=== PATIENT | female | born 2000 | race Caucasian/White ===

== ENCOUNTER → 2020-05-19 | Outpatient (CLI) | payer BC ==
--- NOTE | 2020-05-19 16:58 | US ---
EXAMINATION TYPE: US pelvis complete transvag DATE OF EXAM: 05/19/2020 COMPARISON: NONE CLINICAL HISTORY: 19-year-old female N92.6 Irregular menstruation, unspecified. Pt states irregular m enses, recently having 2 in the month of APRIL TECHNIQUE: Transabdominal sonographic images of the pelvis were acquired. Transvaginal sonographic i mages were medically necessary to better assess the following anatomy: Ovaries Date of LMP: 05/17/20 FINDINGS: EXAM MEASUREMENTS: Uterus: 7.2 x 3.3 x 4.0 cm Endometrial Stripe: 0.3 cm Right Ovary: 3.5 x 1.9 x 1.9 cm Left Ovary: 2.9 x 1.5 x 2.1 cm 1. Uterus: Anteverted and myometrium wnl 2. Endometrium: wnl 3. Right Ovary: wnl 4. Left Ovary: wnl 5. Bilateral Adnexa: wnl 6. Posterior cul-de-sac: Trace fluid IMPRESSION: Unremarkable sonographic examination of the pelvis.
== END ==
LOC: RADUSWWP 14:56
PROVIDERS: ATTEND Family Medicine
DX: N92.6 Irregular menstruation, unspecified (principal)
CPT/HCPCS: 76830; 76856

== ENCOUNTER → 2020-06-13 | Outpatient (CLI) | payer BC ==
--- NOTE | 2020-06-13 13:25 | MR ---
EXAMINATION TYPE: MR brain wo con DATE OF EXAM: 06/13/2020 COMPARISON: MRI brain April 20, 2014. CT brain January 18, 2014. HISTORY: Chronic migraine headaches. TECHNIQUE: Multiplanar, multisequence imaging of the brain and brainstem is performed without IV cont rast. FINDINGS: Diffusion weighted images demonstrate no evidence of a recent infarct or other diffusion abnormality. There is no extraaxial fluid collection or significant white matter signal abnormality. The ventricu lar system and cisternal spaces are normal in size and appearance. The brain volume is age appropria te. Midline structures demonstrate normal morphology. The craniocervical junction remains within normal limits. Normal vascular flow voids are present. The visualized sinuses are clear and the globes are i ntact. IMPRESSION: Fairly unremarkable study. No significant change from prior studies.
== END | disposition home or self-care (01) ==
LOC: RADMRIMAIN 12:12
PROVIDERS: ATTEND Family Medicine
DX: R51 Headache (principal); G89.29 Other chronic pain
CPT/HCPCS: 70551

== ENCOUNTER 2020-08-12 17:59 | Emergency (ER) | payer BC ==
[2020-08-12 18:25] VITALS: BP 113/82; PULSE 68; RESP 16; TEMP 98.5
--- NOTE | 2020-08-12 19:47 | ED ---
Nausea/Vomiting/Diarrhea HPI - General Chief complaint: Nausea/Vomiting/Diarrhea Stated complaint: test Time Seen by Provider: 08/12/20 18:30 Source: patient Mode of arrival: ambulatory Limitations: no limitations - History of Present Illness Initial comments: Patient is a 20-year-old female presenting to the emergency department requesting a test. Patient states she took an at home test 2 days ago and it was negative however she believes she is having all his symptoms like a blood test. She states she has been nauseous, breast tenderness and states she has been spotting. She states she does take control pills but states she stopped a few weeks ago. She has not been before. She does admit to some light spotting but states this is typical of her. She denies any fever, chills, abdominal pain, vomiting, diarrhea. She denies any vaginal discharge, she denies concerns for STDs. She has no further complaints at this time. - Related Data Home Medications Medication Instructions Recorded Confirmed medroxyPROGESTERone [Depo-Provera] 150 mg IM Q90D 07/31/14 04/18/16 Loratadine [Claritin] 10 mg PO DAILY PRN 10/17/14 04/18/16 Albuterol Sulfate [Proair Hfa] 2 puff INHALATION Q6H PRN 01/19/16 04/18/16 Cholecalciferol [Vitamin D3] 4,000 unit PO DAILY 01/19/16 04/18/16 Multivitamins, Thera [Multivitamin] 1 tab PO DAILY 01/19/16 04/18/16 Omeprazole [PriLOSEC] 40 mg PO AC-[id number] 01/19/16 04/18/16 Previous Rx's Medication Instructions Recorded Butalb/Acetaminophen/Caffeine 1 each PO Q4HR PRN #20 tab 04/18/16 [Fioricet] Allergies Allergy/AdvReac Type Severity Reaction Status Date / Time latex Allergy Rash/Hives Verified 08/12/20 18:25 prednisolone AdvReac JOINT PAIN Verified 08/12/20 18:25 ,BACK PAIN STEROIDS Allergy SEVERE Uncoded 08/12/20 18:25 JOINT AND BACK PAIN Review of Systems ROS Statement: Those systems with pertinent positive or pertinent negative responses have been documented in the HPI. ROS Other: All systems not noted in ROS Statement are negative. Past Medical History Past Medical History: Asthma, GERD/Reflux Additional Past Medical History / Comment(s): MIGRAINE, VERTIGO, ABDOMINAL PAIN History of Any Multi-Drug Resistant Organisms: None Reported Past Surgical History: No Surgical Hx Reported Past Anesthesia/Blood Transfusion Reactions: No Reported Reaction Past Psychological History: Depression Smoking Status: Never smoker Past Alcohol Use History: Occasional Past Drug Use History: Marijuana - Past Family History Mother Family Medical History: No Reported History General Exam - General Exam Comments Initial Comments: GENERAL: Patient is well-developed and well-nourished. Patient is nontoxic and in no acute distress. HEAD: Atraumatic, normocephalic. EYES: Pupils equal round and reactive to light, extraocular movements intact, sclera anicteric, conjunctiva are normal. Eyelids were unremarkable. ENT: TMs normal, nares patent, oropharynx clear without exudates. Moist mucous membranes. NECK: Normal range of motion, supple without lymphadenopathy or JVD. LUNGS: Unlabored respirations. Breath sounds clear to auscultation bilaterally and equal. No wheezes rales or rhonchi. HEART: Regular rate and rhythm without murmurs, rubs or gallops. ABDOMEN: Soft, nontender, normoactive bowel sounds. No guarding, no rebound. No masses appreciated. : Deferred MUSCULOSKELETAL: Normal extremities with adequate strength and normal range of motion, no pitting or edema. No clubbing or cyanosis. NEUROLOGICAL: Patient is alert and oriented x 3. Motor and sensory are also intact. Normal speech, normal gait. PSYCH: Normal mood, normal affect. SKIN: Warm, Dry, normal turgor, no rashes or lesions noted. Limitations: no limitations Course Vital Signs 08/12/20 18:21 Temperature 98.5 F Pulse Rate 68 Respiratory 16 Rate Blood Pressure 113/82 O2 Sat by Pulse 99 Oximetry Medical Decision Making - Medical Decision Making Patient is a 20-year-old female here requesting a blood test. She took at home urine test 2 days ago which was negative but is having all signs of including nausea, breast tenderness. Serum hCG is normal, not . I discussed these findings with the patient. She is stable for discharge. She can continue her control pills as normal. She can follow- up with PCP. She is in agreement with this plan of care. - Lab Data Lab Results 08/12/20 Range/Units 19:14 HCG, Quant <2.4 mIU/mL Disposition Clinical Impression: test negative, Nausea Disposition: HOME SELF-CARE Condition: Stable Instructions (If sedation given, give patient instructions): Normal Exam (ED) Additional Instructions: Please return to the Emergency Department if symptoms worsen or any other concerns. Serum hCG test today was negative Follow-up with PCP. Is patient prescribed a controlled substance at d/c from ED?: No Referrals: Rosanne Castro MD [Primary Care Provider] - 1-2 days
== END 2020-08-12 20:32 | disposition home or self-care (01) ==
LOC: EC 17:59
DX: Z32.02 Encounter for pregnancy test, result negative (principal); R11.0 Nausea; N64.4 Mastodynia; J45.909 Unspecified asthma, uncomplicated; K21.9 Gastro-esophageal reflux disease without esophagitis; Z79.899 Other long term (current) drug therapy; Z88.8 Allergy status to other drugs, medicaments and biological substances; Z91.040 Latex allergy status
CPT/HCPCS: 36415; 84702; 99283